=== PATIENT | male | born 1965 | race African-American/Black ===

== ENCOUNTER → 2020-03-27 06:12 | Outpatient (CLI) | payer BC ==
[~2020-03-27 06:12] MED LIST: CLARITHROMYCIN500 M1 PO; FLAGYL500 MG PO; HYDROCHLOROTH12.5 M1 PO; LISINOPRIL20 MG PO; PROTONIX40 MG PO; ZOFRAN4 MG PO
== END | disposition home or self-care (01) ==
LOC: D.US 06:12
PROVIDERS: ATTEND Nurse Practitioner Family
DX: R10.13 Epigastric pain (principal); M54.5 Low back pain; I10 Essential (primary) hypertension

== ENCOUNTER 2020-03-29 00:26 | Emergency (ER) | payer BC ==
[~2020-03-29] VITALS: Ht 170.2 cm; Wt 100.0 kg
[2020-03-29 00:43] VITALS: BP 164/96; Ht 170.2 cm; Wt 100.0 kg
[2020-03-29] MEDS ORDERED: HYDROCHLOROTH12.5 M1 PO (00:44)
[2020-03-29] MEDS ORDERED: LISINOPRIL20 MG PO (00:44)
[2020-03-29] MEDS ORDERED: FLAGYL500 MG PO (00:45)
[2020-03-29] MEDS ORDERED: CLARITHROMYCIN500 M1 PO (00:45)
[2020-03-29] MEDS ORDERED: PROTONIX40 MG PO (00:45)
[2020-03-29] MEDS ORDERED: ZOFRAN4 MG PO (00:46)
[2020-03-29 01:07] LABS: BASOPHILS 0.4 % (0-2); EOSINOPHILS 1.8 % (0-7); HEMATOCRIT 45.6 % (42.0-54.0); HEMOGLOBIN 14.7 g/dL (13.5-17.5); IMMATURE GRANULOCYTES 0.2 % (0-5); LYMPHOCYTES 37.9 % (15-50); MCH 28.7 pg (26.0-34.0); MCHC 32.2 g/dL (31.0-37.0); MCV 89.1 fL (80.0-100.0); MEAN PLATELET VOLUME 10.6 fL (7.4-10.4); MONOCYTES 7.9 % (2-11); NEUTROPHILS 51.8 % (40-80); PLATELET COUNT 192 10x3/uL (130-400); RBC 5.12 10x6/uL (4.20-6.10); RDW 12.7 % (11.5-14.5); WBC 5.7 10x3/uL (4.8-10.8)
[2020-03-29 01:12] LABS: CALC OSMOLALITY 276 mosm/kg (275-300); CALCIUM 9.1 mg/dL (8.5-10.1); CHLORIDE - SERUM 103 mmol/L (98-107); CREATININE - SERUM 1.3 mg/dL (0.6-1.3); GLUCOSE 134 mg/dL (74-106); POTASSIUM - SERUM 3.2 mmol/L (3.5-5.1); SODIUM 137 mmol/L (136-145); UREA NITROGEN 15 mg/dL (7-18); eGFR NON AFRICAN AMERICAN 61 mL/min (90-120)
[2020-03-29 01:24] LABS: ALBUMIN 3.7 g/dL (3.4-5.0); ALKALINE PHOSPHATASE 65 U/L (30-120); ALT (SGPT) 55 U/L (10-68); BILIRUBIN - TOTAL 0.64 mg/dL (0.2-1.3); C-REACTIVE PROTEIN 0.7 mg/dL (0.0-0.9); LIPASE 93 U/L (73-393); PRO BNP 16 pg/mL (0-125); PROTEIN - SERUM 7.4 g/dL (6.4-8.2); TROPONIN-I < 0.017 ng/mL (0.000-0.060)
== END 2020-03-29 04:04 | disposition home or self-care (01) ==
LOC: D.ER 00:26
PROVIDERS: Family Medicine
DX: I10 Essential (primary) hypertension (principal); A04.8 Other specified bacterial intestinal infections

== ENCOUNTER → 2020-04-03 08:16 | Outpatient (CLI) | payer BC ==
[2020-03-29 00:43] VITALS: BMI 34.5
== END | disposition home or self-care (01) ==
LOC: D.CT 08:16
PROVIDERS: ATTEND Nurse Practitioner Family
DX: I77.1 Stricture of artery (principal); I71.4 Abdominal aortic aneurysm, without rupture

== ENCOUNTER 2020-10-08 18:06 | Observation (INO) | payer BC ==
[~2020-10-08] VITALS: Ht 170.2 cm; Wt 105.2 kg
[2020-10-08] MEDS ORDERED: ZANAFLEX2 M1 PO (18:19)
[2020-10-08 18:32] LABS: BASOPHILS 0.3 % (0-2); EOSINOPHILS 1.8 % (0-7); HEMATOCRIT 45.5 % (42.0-54.0); HEMOGLOBIN 14.6 g/dL (13.5-17.5); IMMATURE GRANULOCYTES 0.2 % (0-5); LYMPHOCYTE ABS# 2.29 10x3/uL (1.32-3.57); LYMPHOCYTES 36.8 % (15-50); MCH 28.4 pg (26.0-34.0); MCHC 32.1 g/dL (31.0-37.0); MCV 88.5 fL (80.0-100.0); MEAN PLATELET VOLUME 10.9 fL (7.4-10.4); MONOCYTES 7.4 % (2-11); NEUTROPHIL ABS# 3.33 10x3/uL (1.78-5.38); NEUTROPHILS 53.5 % (40-80); PLATELET COUNT 142 10x3/uL (130-400); RBC 5.14 10x6/uL (4.20-6.10); RDW 12.9 % (11.5-14.5); WBC 6.2 10x3/uL (4.8-10.8)
[2020-10-08 18:44] LABS: CALC OSMOLALITY 279 mosm/kg (275-300); CALCIUM 9.5 mg/dL (8.5-10.1); CARBON DIOXIDE 32.1 mmol/L (21.0-32.0); CHLORIDE - SERUM 104 mmol/L (98-107); CREATININE - SERUM 1.3 mg/dL (0.6-1.3); GLUCOSE 99 mg/dL (74-106); POTASSIUM - SERUM 3.4 mmol/L (3.5-5.1); SODIUM 139 mmol/L (136-145); UREA NITROGEN 18 mg/dL (7-18); eGFR NON AFRICAN AMERICAN 60 mL/min (90-120)
[2020-10-08 18:53] LABS: ALBUMIN 3.8 g/dL (3.4-5.0); ALKALINE PHOSPHATASE 82 U/L (30-120); ALT (SGPT) 46 U/L (10-68); AMYLASE - SERUM 62 U/L (25-115); BILIRUBIN - TOTAL 0.37 mg/dL (0.2-1.3); LIPASE 85 U/L (73-393); PROTEIN - SERUM 7.6 g/dL (6.4-8.2); TROPONIN-I < 0.017 ng/mL (0.000-0.060)
[2020-10-08 18:58] LABS: BILIRUBIN NEGATIVE (NEGATIVE); KETONE NEGATIVE (NEGATIVE); NITRITE NEGATIVE (NEGATIVE); UROBILINOGEN NORMAL mg/dL (< 2)
[2020-10-08 19:07] LABS: SQUAMOUS EPITHELIAL NONE SEEN HPF (0-4); WHITE CELLS - URINE 0-5 HPF (0-1)
--- NOTE | 2020-10-08 19:07 | NUR ---
NORMAL SALINE INFUSING AT 999 ML/H WITH 1000 ML REMAINING AT SHIFT CHANGE
[2020-10-08 19:08] LABS: BACTERIA FEW HPF (NONE SEEN)
--- NOTE | 2020-10-08 19:13 | NUR ---
patient transported to CT
--- NOTE | 2020-10-08 19:17 | NUR ---
REPORT GIVEN TO SHAMAR REES
--- NOTE | 2020-10-08 19:35 | NUR ---
pstient returned from CT
[2020-10-08 19:52] VITALS: BP 124/66
--- NOTE | 2020-10-08 20:00 | NUR ---
nurse spoke with Liv regarding [id number]. Per Liv, room is still dirty
[2020-10-08 20:59] VITALS: BP 136/68
[2020-10-08 22:07] VITALS: BP 145/70; BMI 36.4
[2020-10-08 22:10] VITALS: BP 145/70
--- NOTE | 2020-10-08 22:21 | NUR ---
PT ARRIVED VIA STRETCHER FROM ER AT 2145 HRS. NO DISTRESS NOTED. IV TO RAC WITH NS AT 75CC/HR. IV PATENT. SR PER CM HR 72. VSS. ADMISSION ASSESSMENT. HISTORY AND HOME MED LIST COMPLETED AT THIS TIME. PT CURRENTLY TALKING ON PHONE WITH . SR UP X1, CALL LIGHT WITHIN REACH.
--- NOTE | 2020-10-09 00:15 | NUR ---
PT WATCHING TV. NO DISTRESS NOTED. CALL LIGHT WITHIN REACH.
[2020-10-09 00:30] VITALS: BP 149/75
[2020-10-09 00:42] LABS: CKMB 1.4 U/L (0.0-3.6); CREATINE KINASE 264 UL (21-232); TROPONIN-I < 0.017 ng/mL (0.000-0.060)
--- NOTE | 2020-10-09 03:50 | NUR ---
PT RESTING WITH EYES CLOSED. RESP EVEN AND REGULAR. SR UPX1, CALL LIGHT WITHIN REACH.
--- NOTE | 2020-10-09 04:38 | NUR ---
WATCHING TV. DENIES ANY DISCOMFORT OR NEEDS, CALL LIGHT WITHIN REACH.
[2020-10-09 04:55] VITALS: BP 137/79
--- NOTE | 2020-10-09 06:18 | NUR ---
VSS THROUGHOUT NIGHT. PT DENIED ANY DISCOMFORT. NEEDS MET; WILL CONTINUE TO MONITOR.
[2020-10-09 08:00] VITALS: BP 139/74
[2020-10-09 08:54] LABS: CKMB 1.5 U/L (0.0-3.6); CREATINE KINASE 277 UL (21-232); TROPONIN-I < 0.017 ng/mL (0.000-0.060)
[2020-10-09 11:00] VITALS: BP 150/86
--- NOTE | 2020-10-09 11:43 | NUR ---
NURSE WAITS ON HOLD FOR 5 MIN[address] TO HEAR FROM DR EWING TO SEE IF PATIENT CAN EAT LUNCH. NURSE WILL TRY TO CALL BACK.
[2020-10-09 15:00] VITALS: BP 123/64
--- NOTE | 2020-10-09 15:44 | NUR ---
DR SANTANA IN ROOM SEEING PT AT THIS TIME
[2020-10-09 18:00] VITALS: BP 146/85
--- NOTE | 2020-10-09 20:11 | NUR ---
RECIEVED UP IN BED WITH EYES OPENA ND TV ON. SPOUSE AT BEDSIDE. ALERT AND ORIETNED X4. UP AD NATHAN. IV TO RT AC SL. TELEMETRY IN PLACE. DENIES ANY PAIN AT THIS TIME.
[2020-10-10 01:07] VITALS: BP 127/72
[2020-10-10 05:38] VITALS: BP 141/79
--- NOTE | 2020-10-10 08:00 | NUR ---
PATIENT JUST GOT BACK FROM EGD. NURSE CALLS FOR A BREAKFAST TRAY. PATIENT IS AWAKE ALERT AND ORIENTED
[2020-10-10 08:39] VITALS: BP 102/63
[2020-10-10 11:25] VITALS: Ht 170.2 cm; Wt 105.2 kg
[2020-10-10 12:00] VITALS: BP 141/90
[2020-10-10 15:00] VITALS: BP 148/83
[2020-10-10] MEDS ORDERED: CARAFATE1 G PO (17:35)
[2020-10-10] MEDS ORDERED: HCTZ25 MG PO (17:35)
[2020-10-10] MEDS ORDERED: PROTONIX40 MG PO (17:36)
--- NOTE | 2020-10-10 18:05 | NUR ---
PATIENT GIVEN DC INSTRUCTIONS AT THIS TIME. IN ROOM. IV DC WITH CATH INTACT. PATIENT REMINDED OF DC MEDS AND FOLLOW UP APPT. PATIENT VERBS UNDERSTANDING.
== END 2020-10-10 18:42 | disposition home or self-care (01) ==
LOC: D.ER 18:06 → D.EDHOLD 20:21 → D.M2 20:21 → OBSVTIME 20:22 → D.M2 20:46
PROVIDERS: Emergency Medicine; Family Medicine; ADMIT Family Medicine; ATTEND Family Medicine
DX: R07.89 Other chest pain (principal); R10.13 Epigastric pain; I10 Essential (primary) hypertension; K59.00 Constipation, unspecified; K20.90 Esophagitis, unspecified without bleeding; K29.70 Gastritis, unspecified, without bleeding; K29.80 Duodenitis without bleeding; K27.9 Peptic ulcer, site unspecified, unspecified as acute or chronic, without hemorrhage or perforation

== ENCOUNTER → 2020-10-12 12:39 | Outpatient (CLI) | payer BC ==
[2020-10-10 11:25] VITALS: BMI 36.3
[~2020-10-12 12:39] MED LIST changes: +CARAFATE1 G PO; +HCTZ25 MG PO; +ZANAFLEX2 M1 PO
== END | disposition home or self-care (01) ==
LOC: D.NM 12:39
PROVIDERS: ATTEND Family Medicine
DX: R10.10 Upper abdominal pain, unspecified (principal)

== ENCOUNTER 2020-10-24 06:39 | Day surgery (SDC) | payer BC ==
[~2020-10-24] VITALS: Ht 375.9 cm; Wt 104.3 kg
[~2020-10-24 06:39] MED LIST changes: +ZANAFLEX2 M1
[2020-10-24 07:11] LABS: BASOPHILS 0.2 % (0-2); EOSINOPHILS 1.9 % (0-7); HEMATOCRIT 44.1 % (42.0-54.0); HEMOGLOBIN 14.4 g/dL (13.5-17.5); LYMPHOCYTE ABS# 1.63 10x3/uL (1.32-3.57); LYMPHOCYTES 34.1 % (15-50); MCH 28.9 pg (26.0-34.0); MCHC 32.7 g/dL (31.0-37.0); MCV 88.4 fL (80.0-100.0); MEAN PLATELET VOLUME 10.7 fL (7.4-10.4); MONOCYTES 6.5 % (2-11); NEUTROPHIL ABS# 2.74 10x3/uL (1.78-5.38); NEUTROPHILS 57.3 % (40-80); RBC 4.99 10x6/uL (4.20-6.10); RDW 12.9 % (11.5-14.5); WBC 4.8 10x3/uL (4.8-10.8)
[2020-10-24 07:13] LABS: ANION GAP 5.9 mmol/L (8-16); CALCIUM 9.5 mg/dL (8.5-10.1); CARBON DIOXIDE 32.7 mmol/L (21.0-32.0); CREATININE - SERUM 1.1 mg/dL (0.6-1.3); PLATELET COUNT 187 10x3/uL (130-400); POTASSIUM - SERUM 3.6 mmol/L (3.5-5.1)
[2020-10-24 07:41] VITALS: BP 133/80; Ht 375.9 cm; Wt 104.3 kg
[2020-10-24] MEDS ORDERED: HYDROCODON-ACE1 EA10 PO (10:07)
--- NOTE | 2020-10-24 11:55 | NUR ---
DC INSTRUCTIONS GIVEN TO PT/FAMILY. STATE UNDERSTANDING. WILL CONTNUE TO MONITOR.
--- NOTE | 2020-10-24 13:12 | NUR ---
1312 UP TO BR TO ATTEMPT TO VOID.
--- NOTE | 2020-10-24 18:53 | NUR ---
1845 PT VOIDS QS. IV DC'D WITH CATH INTACT, GETTING DRESSED. DC INSTS. REVIEWED VOICED UNDERSTANDING, HAS RX. RELEASED IN WC [facility].
--- NOTE | 2020-10-25 11:28 | OP ---
PATIENT NAME: TOAN JAMES MEDICAL RECORD: [id number] :61 LOCATION:D.OPS ADMISSION DATE: SURGEON: STALIN BARONE MD DATE OF OPERATION: 10/24/2020 PREOPERATIVE DIAGNOSES: 1. Biliary dyskinesia. 2. Hypertension. POSTOPERATIVE DIAGNOSES: 1. Biliary dyskinesia. 2. Hypertension. PROCEDURE: Laparoscopic cholecystectomy. SURGEON: Stalin Barone MD DESCRIPTION OF PROCEDURE: The patient's abdomen was prepped and draped in sterile fashion. A cutdown was made on the superior aspect of the umbilicus, 0 Vicryls were placed on the fascia bilaterally and the fascia was incised with a 15-blade. I then bluntly entered the peritoneal cavity and placed a 12-mm Buster port. Under direct visualization, a 5-mm trocar was placed in the epigastrium and two more 5-mm trocars were placed in the right subcostal region. The gallbladder was grasped and elevated. There are no signs of any inflammatory changes. The cystic artery and cystic duct were dissected free and these were clipped proximally and distally and ligated in standard fashion. The gallbladder was taken off the liver bed using electrocautery and placed into the right upper quadrant. Any bleeding from the liver bed was then treated with electrocautery. The gallbladder had been placed into an EndoCatch bag. The gallbladder was then removed from the abdomen through the umbilicus. The ports and insufflation were then removed. The umbilical fascia was closed with interrupted 0 Vicryls times 3. The wounds were irrigated out with normal saline and then infused with 10 mL of 0.25% Marcaine with epinephrine. The skin incisions were closed with subcutaneous 5-0 Monocryl and dressed appropriately. COMPLICATIONS: None. CONDITION: Stable. ANESTHESIA: General endotracheal and local. BLOOD LOSS: Minimal. TRANSINT:[id number] Voice Confirmation ID: [id number] DOCUMENT ID: [id number] STALIN BARONE MD at 1128 CC: TOAN EWING MD [id number] DICTATION DATE: 10/24/20 1011 AUDITOR: 10/24/20 1451 [facility] [place] 10/24/20 [id number] [place] [address]
== END 2020-10-24 19:00 | disposition home or self-care (01) ==
LOC: D.OPS 06:39
PROVIDERS: ATTEND Surgery
DX: K82.8 Other specified diseases of gallbladder (principal); I10 Essential (primary) hypertension

== ENCOUNTER → 2020-11-10 11:00 | Outpatient (CLI) | payer BC ==
[~2020-11-10 11:00] MED LIST changes: +HYDROCODON-ACE1 EA10 PO
== END | disposition home or self-care (01) ==
LOC: D.US 11:00
PROVIDERS: ATTEND Surgery
DX: N63.32 Unspecified lump in axillary tail of the left breast (principal); R52 Pain, unspecified